=== PATIENT | female | born 1985 | race Caucasian/White ===

== ENCOUNTER 2018-09-08 04:07 | Emergency (ER) | payer BC ==
[~2018-09-08] VITALS: Ht 170.2 cm; Wt 87.0 kg
[2018-09-08] MEDS ORDERED: propofol 10mg/ml 20ml vial IV ONE (04:50)
[2018-09-08 04:54] LABS: BASOPHILS # (AUTO) 0.1 X10'3 (0-0.2); BASOPHILS % (AUTO) 0.5 % (0-1); EOSINOPHILS # (AUTO) 0.2 X10'3 (0-0.9); EOSINOPHILS % (AUTO) 1.6 % (0-6); HEMATOCRIT 45.6 % (35.0-45.0); HEMOGLOBIN 15.1 g/dl (12.0-16.0); LYMPHOCYTES # (AUTO) 4.6 X10'3 (1.1-4.8); LYMPHOCYTES % (AUTO) 31.3 % (21-51); MEAN CORPUSCULAR HEMOGLOBIN 28.9 PG (27.0-31.0); MEAN CORPUSCULAR VOLUME 87.6 FL (78-98); MEAN PLATELET VOLUME 9.9 FL (7.4-10.4); MONOCYTES # (AUTO) 1.3 X10'3 (0-0.9); MONOCYTES % (AUTO) 8.7 % (2-12); NEUTROPHILS # (AUTO) 8.5 X10'3 (1.8-7.7); NEUTROPHILS % (AUTO) 57.9 % (42-75); PLATELET COUNT 358 X10'3 (140-440); RED CELL DISTRIBUTION WIDTH 14.3 % (11.5-14.5); WHITE BLOOD COUNT 14.7 X10'3 (4.5-11.0)
[2018-09-08 04:55] LABS: ALANINE AMINOTRANSFERASE 95 U/L (12-78); ALBUMIN 3.9 G/DL (3.4-5.0); ALKALINE PHOSPHATASE 135 IU/L (46-116); ANION GAP 12 (8-16); ASPARTATE AMINO TRANSFERASE 38 U/L (10-37); BILIRUBIN,TOTAL 0.3 MG/DL (0.1-1.0); BLOOD UREA NITROGEN 12 MG/DL (7-18); CALCIUM 8.6 MG/DL (8.5-10.1); CHLORIDE 108 MMOL/L (99-107); GLUCOSE 110 MG/DL (70-104); MAGNESIUM 1.9 MG/DL (1.5-2.4); POTASSIUM 3.4 MMOL/L (3.5-5.1); SODIUM 144 MMOL/L (135-145); TOTAL CARBON DIOXIDE 23.6 MMOL/L (24-32); eGFR 83 ML/MIN
[2018-09-08 06:08] VITALS: BP 131/80
== END 2018-09-08 06:09 | disposition home or self-care (01) ==
LOC: ER 04:08
DX: I48.91 Unspecified atrial fibrillation (principal); Z88.0 Allergy status to penicillin
CPT/HCPCS: 36415; 71045; 80053; 83735; 85025; 92960; 93005; 94760; 99152; 99285; J2704

== ENCOUNTER 2019-05-26 09:39 | Emergency (ER) | payer BC ==
[~2019-05-26] VITALS: Ht 170.2 cm; Wt 100.0 kg
[2019-05-26] MEDS ORDERED: normal saline 1000ml 1,000 ML IV ONE (09:55)
[2019-05-26] MEDS ORDERED: magnesium 2GM in 50ml NS 50 ML IV ONE (10:00)
[2019-05-26] MEDS ORDERED: diltiazem 5mg/ml 5ml inj. IV ONE (10:10)
--- NOTE | 2019-05-26 10:22 | NUR ---
CARDIZEM GIVEN. PATIENT IN TRENDELENBERG AND ATTEMPTING VALSALVA MANEUVERS. HR [id number].
[2019-05-26 10:39] LABS: ALANINE AMINOTRANSFERASE 44 U/L (12-78); ALBUMIN 3.6 G/DL (3.4-5.0); ALKALINE PHOSPHATASE 90 IU/L (46-116); ANION GAP 8 (8-16); ASPARTATE AMINO TRANSFERASE 24 U/L (10-37); BILIRUBIN,TOTAL 0.4 MG/DL (0.1-1.0); BLOOD UREA NITROGEN 8 MG/DL (7-18); BUN/CREATININE RATIO 10.7 (6.6-38.0); CALCIUM 8.4 MG/DL (8.5-10.1); CHLORIDE 108 MMOL/L (99-107); CREATININE 0.75 MG/DL (0.40-0.90); GLUCOSE 88 MG/DL (70-104); POTASSIUM 3.8 MMOL/L (3.5-5.1); SODIUM 141 MMOL/L (135-145); TOTAL CARBON DIOXIDE 24.9 MMOL/L (24-32); TOTAL PROTEIN 7.3 G/DL (6.4-8.2); eGFR 88 ML/MIN
[2019-05-26 10:48] LABS: BASOPHILS # (AUTO) 0.1 X10'3 (0-0.2); BASOPHILS % (AUTO) 0.7 % (0-1); EOSINOPHILS # (AUTO) 0.2 X10'3 (0-0.9); EOSINOPHILS % (AUTO) 1.4 % (0-6); HEMATOCRIT 41.6 % (35.0-45.0); HEMOGLOBIN 14.1 g/dl (12.0-16.0); LYMPHOCYTES # (AUTO) 3.2 X10'3 (1.1-4.8); LYMPHOCYTES % (AUTO) 26.8 % (21-51); MEAN CORPUSCULAR HEMOGLOBIN 31.4 PG (27.0-31.0); MEAN CORPUSCULAR HGB CONC 33.8 g/dL (33.0-36.5); MEAN CORPUSCULAR VOLUME 92.7 FL (78-98); MONOCYTES # (AUTO) 1.1 X10'3 (0-0.9); MONOCYTES % (AUTO) 8.8 % (2-12); NEUTROPHILS # (AUTO) 7.5 X10'3 (1.8-7.7); NEUTROPHILS % (AUTO) 62.3 % (42-75); PLATELET COUNT 314 X10'3 (140-440); RED BLOOD COUNT 4.49 X10'6 (4.20-5.60); RED CELL DISTRIBUTION WIDTH 13.3 % (11.5-14.5); WHITE BLOOD COUNT 12.1 X10'3 (4.5-11.0)
[2019-05-26] MEDS ORDERED: propofol 10mg/ml 20ml vial IV ONE (11:15)
[2019-05-26 12:52] VITALS: BP 112/74
== END 2019-05-26 12:54 | disposition home or self-care (01) ==
LOC: ER 09:39
DX: I48.91 Unspecified atrial fibrillation (principal); Z88.0 Allergy status to penicillin
CPT/HCPCS: 36415; 80053; 85025; 92960; 93005; 96365; 96375; 99285; J2704; J3475; J7030; J3490

== ENCOUNTER 2020-04-26 14:23 | Emergency (ER) | payer BC ==
[~2020-04-26] VITALS: Ht 170.2 cm; Wt 101.4 kg
[2020-04-26] MEDS ORDERED: normal saline 1000ml 1,000 ML IV ONE (14:55)
[2020-04-26] MEDS ORDERED: metoprolol tartrate 1mg/ml inj IV ONE (14:55)
[2020-04-26] MEDS ORDERED: magnesium 2GM in 50ml NS 50 ML IV ONE (14:55)
[2020-04-26 15:31] LABS: BASOPHILS # (AUTO) 0.1 X10'3 (0-0.2); BASOPHILS % (AUTO) 0.8 % (0-1); EOSINOPHILS # (AUTO) 0.1 X10'3 (0-0.9); EOSINOPHILS % (AUTO) 1.2 % (0-6); HEMATOCRIT 44.8 % (35.0-45.0); HEMOGLOBIN 15.2 g/dl (12.0-16.0); LYMPHOCYTES # (AUTO) 3.2 X10'3 (1.1-4.8); LYMPHOCYTES % (AUTO) 29.9 % (21-51); MEAN CORPUSCULAR HEMOGLOBIN 32.1 PG (27.0-31.0); MEAN CORPUSCULAR VOLUME 94.5 FL (78-98); MEAN PLATELET VOLUME 9.9 FL (7.4-10.4); MONOCYTES % (AUTO) 9.6 % (2-12); NEUTROPHILS # (AUTO) 6.4 X10'3 (1.8-7.7); NEUTROPHILS % (AUTO) 58.5 % (42-75); PLATELET COUNT 315 X10'3 (140-440); RED BLOOD COUNT 4.74 X10'6 (4.20-5.60); RED CELL DISTRIBUTION WIDTH 12.9 % (11.5-14.5); WHITE BLOOD COUNT 10.9 X10'3 (4.5-11.0)
[2020-04-26 15:45] LABS: ALANINE AMINOTRANSFERASE 58 U/L (12-78); ALBUMIN 3.7 G/DL (3.4-5.0); ALBUMIN/GLOBULIN RATIO 1.1 (1.1-1.5); ALKALINE PHOSPHATASE 82 IU/L (46-116); ANION GAP 6 (8-16); ASPARTATE AMINO TRANSFERASE 26 U/L (10-37); BILIRUBIN,TOTAL 0.6 MG/DL (0.1-1.0); BLOOD UREA NITROGEN 13 MG/DL (7-18); BUN/CREATININE RATIO 15.9 (6.6-38.0); CALCIUM 8.7 MG/DL (8.5-10.1); CHLORIDE 106 MMOL/L (99-107); CREATININE 0.82 MG/DL (0.40-0.90); GLUCOSE 105 MG/DL (70-104); MAGNESIUM 2.1 MG/DL (1.5-2.4); POTASSIUM 3.7 MMOL/L (3.5-5.1); SODIUM 139 MMOL/L (135-145); TOTAL CARBON DIOXIDE 26.8 MMOL/L (24-32); TOTAL PROTEIN 7.2 G/DL (6.4-8.2); eGFR 79 ML/MIN
[2020-04-26 16:49] VITALS: BP 110/67
== END 2020-04-26 16:50 | disposition home or self-care (01) ==
LOC: ER 14:24
DX: I48.91 Unspecified atrial fibrillation (principal); Z98.890 Other specified postprocedural states; Z88.0 Allergy status to penicillin
CPT/HCPCS: 36415; 71045; 80053; 83735; 84484; 85025; 93005; 96365; 96375; 99285; J3475; J7030; J3490

== ENCOUNTER 2024-06-04 23:50 | Inpatient (IN) | payer BC ==
[~2024-06-04] VITALS: Ht 172.7 cm; Wt 103.6 kg
[2024-06-04 23:54] VITALS: TEMP 98.4
[2024-06-05] VITALS (13 sets, daily range): BP systolic 134–158; BP diastolic 83–103; PULSE 73–93; RESP 11–23; O2SAT 95–100
[2024-06-05 00:43] LABS: BASOPHILS # (AUTO) 0.1 X10'3 (0-0.2); BASOPHILS % (AUTO) 0.8 % (0-1); EOSINOPHILS # (AUTO) 0.2 X10'3 (0-0.9); EOSINOPHILS % (AUTO) 1.5 % (0-6); HEMATOCRIT 40.9 % (35.0-45.0); HEMOGLOBIN 13.7 g/dl (12.0-16.0); LYMPHOCYTES # (AUTO) 4.9 X10'3 (1.1-4.8); LYMPHOCYTES % (AUTO) 37.1 % (21-51); MEAN CORPUSCULAR HEMOGLOBIN 30.8 PG (27.0-31.0); MEAN CORPUSCULAR HGB CONC 33.6 g/dL (33.0-36.5); MEAN CORPUSCULAR VOLUME 91.6 FL (78-98); MEAN PLATELET VOLUME 9.7 FL (7.4-10.4); MONOCYTES # (AUTO) 1.2 X10'3 (0-0.9); MONOCYTES % (AUTO) 8.9 % (2-12); NEUTROPHILS # (AUTO) 6.9 X10'3 (1.8-7.7); NEUTROPHILS % (AUTO) 51.7 % (42-75); PLATELET COUNT 358 X10'3 (140-440); RED BLOOD COUNT 4.46 X10'6 (4.20-5.60); WHITE BLOOD COUNT 13.3 X10'3 (4.5-11.0)
[2024-06-05 00:45] LABS: ALANINE AMINOTRANSFERASE 49 U/L (12-78); ALBUMIN 3.7 G/DL (3.4-5.0); ALBUMIN/GLOBULIN RATIO 1.2 (1.1-1.5); ALKALINE PHOSPHATASE 109 IU/L (46-116); ANION GAP 8 (8-16); ASPARTATE AMINO TRANSFERASE 24 U/L (10-37); BILIRUBIN,TOTAL 0.8 MG/DL (0.1-1.0); BLOOD UREA NITROGEN 17 MG/DL (7-18); CALCIUM 8.8 MG/DL (8.5-10.1); CHLORIDE 105 MMOL/L (99-107); CREATININE 0.85 MG/DL (0.40-0.90); GLUCOSE 110 MG/DL (70-104); LIPASE 31 U/L (16-77); POTASSIUM 3.7 MMOL/L (3.5-5.1); SODIUM 139 MMOL/L (135-145); TOTAL CARBON DIOXIDE 26.1 MMOL/L (24-32); TOTAL PROTEIN 6.9 G/DL (6.4-8.2); eCRCL 90 ML/MIN; eGFR 74 ML/MIN
[2024-06-05] MEDS: proCHLORperazine 10 MG/2 ml inj IV ONE (01:30)
[2024-06-05] MEDS: morphine 4 MG/ML inj SYRINge IV ONE (01:39)
[2024-06-05 03:46] LABS: BILIRUBIN,URINE NEGATIVE (Neg); CLARITY,URINE SLIGHTLY CLOUDY (Clear); COLOR,URINE YELLOW (Yellow); GLUCOSE, URINE NEGATIVE (Neg); KETONES,URINE NEGATIVE (Neg); LEUKOCYTE ESTERASE ,URINE NEGATIVE (Neg); NITRITES, URINE NEGATIVE (Neg); OCCULT BLOOD,URINE NEGATIVE (Neg); PROTEIN,URINE NEGATIVE (Neg); URINE HCG NEGATIVE (NEG); UROBILINOGEN,URINE 0.2 E.U/dL (0.2-1.0)
[2024-06-05 03:52] LABS: UA COLLECTION TYPE CLN CATCH MIDSTREAM
[2024-06-05 03:53] LABS: RBC,URINE 0-2 /HPF (0-2); WBC,URINE 0-4 /HPF (0-4)
[2024-06-05 03:54] LABS: BACTERIA,URINE FEW /HPF (Neg); MUCUS STRANDS FEW /LPF (Neg); SQUAMOUS EPITHELIAL CELL,UR MODERATE /LPF (FEW); TRANSITIONAL EPI CELLS,URINE FEW /HPF
[2024-06-05] MEDS ORDERED: ceFOXitin 1 GM/NS 100mL IVPB 100 ML IV ONE (04:05)
[2024-06-05] MEDS ORDERED: potassium Cl 40MEQ/1/2NS 520ml 520 ML IV PRN (04:30)
[2024-06-05] MEDS ORDERED: magnesium sulf-water 2g/50mL 50 ML IV PRN (04:30)
[2024-06-05] MEDS ORDERED: mag hydrox/Alum hydrox/simeth 30ml oral suspension PO PRN (04:30)
[2024-06-05] MEDS ORDERED: ondansetron/PF 4mg/2ml inj IV PRN ×3 (04:30→14:10)
[2024-06-05] MEDS ORDERED: magnesium Cl slow-release 64mg tablet PO PRN (04:30)
[2024-06-05] MEDS ORDERED: acetaminophen 325mg tablet PO PRN ×2 (04:30)
[2024-06-05] MEDS ORDERED: potassium Cl 20 mEq SR tablet PO PRN ×2 (04:30)
[2024-06-05] MEDS ORDERED: magnesium sulf-water 4G/100mL 100 ML IV PRN (04:30)
[2024-06-05] MEDS: WATER IV ONE (04:52)
[2024-06-05] MEDS: CEFOXITIN IV ONE (04:52)
[2024-06-05] MEDS: DEXTROSE 5% IV ONE (04:52)
[2024-06-05 05:03] LABS: URINE AMPHETAMINE SCREEN NEGATIVE (Neg); URINE BARBITUATE SCREEN NEGATIVE (Neg); URINE BENZODIAZEPINES SCREEN NEGATIVE (Neg); URINE CANNABINOID SCREEN NEGATIVE (Neg); URINE COCAINE SCREEN NEGATIVE (Neg); URINE METHADONE SCREEN NEGATIVE (Neg); URINE OPIATE SCREEN POSITIVE (Neg); URINE PHENCYCLIDINE SCREEN NEGATIVE (Neg)
[2024-06-05] MEDS: HYDROcodone/acetaminophen 10/325mg tab PO PRN (05:39)
[2024-06-05] MEDS: metroNIDAZOLE-Flagyl 500mg/NS 100 ML IV ONE (05:45)
[2024-06-05] MEDS: normal saline 1000ml 1,000 ML IV SCH (05:45)
[2024-06-05] MEDS: metroNIDAZOLE-Flagyl 500mg/NS 100 ML IV SCH (06:51)
[2024-06-05] MEDS ORDERED: NO HOME MEDS (07:22)
[2024-06-05 07:49] LABS: POTASSIUM 3.7 MMOL/L (3.5-5.1)
[2024-06-05] MEDS: K and/or MAG REPLACEMENT MC SCH (07:54)
[2024-06-05] MEDS: ciprofloxacin/D5W 200mg/100mL 100 ML IV SCH (08:16)
[2024-06-05] MEDS ORDERED: LORazepam 2 mg/ml vial IV PRN (08:50)
[2024-06-05] MEDS ORDERED: LORazepam 1 MG tablet PO PRN (08:50)
[2024-06-05] MEDS: folic acid 1mg tablet PO SCH (09:41)
[2024-06-05] MEDS ORDERED: BUPIVAcaine 2.5mg/ml inj 50ml vial (contains preservative) ONE (11:59)
[2024-06-05] MEDS ORDERED: meperidine/PF 25mg/ml syringe IV PRN ×2 (12:25)
[2024-06-05] MEDS ORDERED: morphine 2 MG/ML inj. syringe IV PRN (12:25)
[2024-06-05] MEDS ORDERED: proCHLORperazine 10 MG/2 ml inj IV PRN (12:25)
[2024-06-05] MEDS ORDERED: morphine 4 MG/ML inj SYRINge IV PRN (12:25)
[2024-06-05] MEDS ORDERED: ringers solution, lacted 1,000 ML IV SCH (12:25)
[2024-06-05] MEDS ORDERED: sevoflurane 250ml liquid IH ONE (12:26)
[2024-06-05] MEDS ORDERED: clindamycin-Cleocin 900mg/D5W 50 ML IV ONE (12:28)
[2024-06-05] MEDS ORDERED: midazolam 1 mg/ML 2ml injection ONE (12:29)
[2024-06-05] MEDS ORDERED: propofol inj 20 ML IV ONE (12:30)
[2024-06-05] MEDS ORDERED: rocuronium 10mg/ml inj IV ONE (12:30)
[2024-06-05] MEDS ORDERED: fentaNYL /PF 50mcg/ml 5ml ampule ONE (12:30)
[2024-06-05] MEDS ORDERED: dexamethasone sod phosphate 4mg/ml inj. ONE (13:32)
[2024-06-05] MEDS ORDERED: acetaminophen 1,000mg/100ml IV 100 ML IV ONE (13:32)
[2024-06-05] MEDS ORDERED: ondansetron/PF 4mg/2ml inj ONE (13:33)
[2024-06-05] MEDS ORDERED: sugammadex 200mg/2ml injection IV ONE (13:48)
[2024-06-05] MEDS: meperidine/PF 25mg/ml syringe IV PRN (14:08)
[2024-06-05] MEDS ORDERED: HYDROcodone/acetaminophen 5mg/325mg tablet PO PRN (14:10)
[2024-06-05] MEDS ORDERED: naloxone 0.4 mg/ml inj IV PRN (14:10)
[2024-06-05] MEDS: ketorolac trometh 30MG/ML vial 30 MG/ML VIAL IV ONE (14:38)
[2024-06-05] MEDS: HYDROcodone/acetaminophen 5mg/325mg tablet PO PRN (15:26)
[2024-06-05 16:26] LABS: BASOPHILS % (AUTO) 0.2 % (0-1); EOSINOPHILS % (AUTO) 0.1 % (0-6); HEMATOCRIT 40.5 % (35.0-45.0); HEMOGLOBIN 13.4 g/dl (12.0-16.0); LYMPHOCYTES % (AUTO) 7.9 % (21-51); MEAN CORPUSCULAR HEMOGLOBIN 30.4 PG (27.0-31.0); MEAN CORPUSCULAR VOLUME 91.9 FL (78-98); MEAN PLATELET VOLUME 9.6 FL (7.4-10.4); MONOCYTES # (AUTO) 0.1 X10'3 (0-0.9); MONOCYTES % (AUTO) 1.1 % (2-12); NEUTROPHILS % (AUTO) 90.7 % (42-75); PLATELET COUNT 334 X10'3 (140-440); RED BLOOD COUNT 4.41 X10'6 (4.20-5.60); RED CELL DISTRIBUTION WIDTH 13.2 % (11.5-14.5); WHITE BLOOD COUNT 13.3 X10'3 (4.5-11.0)
[2024-06-09] MEDS ORDERED: thiamine 100mg tablet PO SCH (08:00)
== END 2024-06-05 17:00 | disposition home or self-care (01) | DRG 419 ==
LOC: ER 23:51 → ED HOLD 06-05 04:35
PROVIDERS: ADMIT Internal Medicine Sleep Medicine; ATTEND Internal Medicine
PROC: 8E0W4CZ Robotic Assisted Procedure of Trunk Region, Percutaneous Endoscopic Approach (ICD-10-PCS; 2024-06-05)
PROC: 0FT44ZZ Resection of Gallbladder, Percutaneous Endoscopic Approach (ICD-10-PCS; principal; 2024-06-05 12:26)
DX: K80.62 Calculus of gallbladder and bile duct with acute cholecystitis without obstruction (principal); N83.202 Unspecified ovarian cyst, left side; K76.0 Fatty (change of) liver, not elsewhere classified; I48.91 Unspecified atrial fibrillation; Z98.891 History of uterine scar from previous surgery
CPT/HCPCS: 96374; 96375; 99285; Z7506; Z7508; 36415; 74176; 76700; 80053; 80305; 81001; 81025; 83605; 83690; 83735; 84132; 84145; 85025; 87040; 87081; A4215; A4615; A4618; A7000; G0378; J0131; J0694; J0744; J0780; J1100; J1885; J2175; J2250; J2270; J2405; J2704; J3010; J3490; J7030; J7060; J7120

== ENCOUNTER 2025-05-08 15:02 | Outpatient (CLI) | payer BC ==
[~2025-05-08 15:02] MED LIST: NO HOME MEDS
[2025-05-08 15:48] LABS: MEAN PLATELET VOLUME 10.0 FL (7.4-10.4); RED CELL DISTRIBUTION WIDTH 12.9 % (11.5-14.5)
[2025-05-08 16:03] LABS: CHOL/HDL RATIO 2.6 (0.00-4.99); CREATININE 0.75 MG/DL (0.40-0.90); LDL CHOLESTEROL 59 MG/DL (50-100); TOTAL CARBON DIOXIDE 29.5 MMOL/L (24-32); eGFR 86 ML/MIN
[2025-05-08 16:15] LABS: % IRON SATURATION 15 % (11-46)
[2025-05-10 11:20] LABS: ESTRADIOL 59.0 pg/mL (.); FSH, SERUM 2.9 mIU/mL (.); LUTEINIZING HORMONE 1.8 mIU/mL (.); PROGESTERONE 8.6 ng/mL (.)
[2025-05-12 08:11] LABS: CORTISOL LC 4.5 ug/dL (6.2-19.4)
== END 2025-05-08 23:59 | disposition home or self-care (01) ==
LOC: LAB 15:02
PROVIDERS: ATTEND Nurse Practitioner
DX: I10 Essential (primary) hypertension (principal); R53.83 Other fatigue; E78.9 Disorder of lipoprotein metabolism, unspecified; R79.89 Other specified abnormal findings of blood chemistry; K90.9 Intestinal malabsorption, unspecified; E34.9 Endocrine disorder, unspecified
CPT/HCPCS: 36415; 80053; 80061; 82306; 82607; 82670; 82746; 83001; 83002; 83036; 83540; 83550; 84144; 84270; 84410; 84550; 85025